=== PATIENT | male | born 1970 | race African-American/Black ===

== ENCOUNTER 2020-10-09 07:19 | Emergency (ER) | payer OTHER ==
[~2020-10-09] VITALS: Ht 175.3 cm; Wt 86.2 kg
[~2020-10-09 07:19] MED LIST: ABILIFY10 MG PO; BASAGLAR K100 UNIT/1 SUB-Q; BUSPIRONE HCL10 MG PO; EFFEXOR XR150 MG PO; EFFEXOR XR75 MG PO; FISH OIL 1,0001 EAC2 NG; GLUCOPHAGE500 MG PO; JARDIANCE25 MG PO; LAMOTRIGINE100 MG PO; LANTUS100 UNITS/ SUB-Q; LATUDA80 MG PO; LIPITOR80 MG GT; LOSARTAN-HCTZ1 EACH PO; LOVASTATIN20 MG PO; METOPROLOL SUCC25 MG PO; NEURONTIN600 MG PO; NEURONTIN800 MG PO; NOVOLOG FL100 UNIT/1 SUB-Q; PROZAC40 MG PO; TRAMADOL HCL50 MG PO; TRULICITY0.75 MG/0. SUB-Q; XANAX1 MG PO
--- OUTSIDE RECORDS SUMMARY | 2020-10-09 07:20 | XMS ---
PreManage Notification: KESHA VELA Security Interactive Digital Media Specialist Events No recent Security Events currently on file CRITERIA MET - PDMP CARE PROVIDERS FAHEEM NOBLE Physician Farm Owner Operator 07/11/2020-Current YUVAL PHONE: [phone] Rafael has no Care Guidelines for this patient. Alexi VISIT COUNT (12 MO.) 2 [facility] TOTAL 2 NOTE: Visits indicate total known visits. ED/UCC VISIT TRACKING (12 MO.) 10/09/2020 07:19 [facility] [place] TYPE: Emergency COMPLAINT: - FALL 07/10/2020 18:47 [facility] [place] TYPE: Emergency COMPLAINT: - SOB/COUGH/FEVER DIAGNOSES: - Contact with and (suspected) exposure to other viral communicable diseases - Type 2 diabetes mellitus without complications - termite inspector (current) use of insulin - Essential (primary) hypertension - Other technician terminal and repeater (current) drug therapy - Personal history of transient ischemic attack (TIA), and cerebral infarction without residual deficits - Bipolar disorder, unspecified - Shortness of breath - Nicotine dependence, unspecified, uncomplicated INPATIENT VISIT TRACKING (12 MO.) No inpatient visits to display in this time frame [id number]
--- NOTE | 2020-10-10 05:36 | EKG ---
[facility] [address] [place], [place] [address] Signed Sinus tachycardia Otherwise normal ECG When compared with ECG of 10-JUL-2020 19:43, No significant change was found Confirmed by SVEN WATERMAN MD ([id number]) on 10/10/2020 5:36:13 AM Electronically Signed By: SVEN WATERMAN MD 10/10/20 0536 PATIENT NAME: KESHA VELA III Electrocardiogram DATE OF : 66 PHYSICIAN: SVEN WATERMAN MD REPORT #: [id number] REPORT IS CONFIDENTIAL AND NOT TO BE RELEASED WITHOUT AUTHORIZATION
== END 2020-10-09 11:32 | disposition home or self-care (01) ==
LOC: ED 07:19
DX: R55 Syncope and collapse (principal); S83.92XA Sprain of unspecified site of left knee, initial encounter; W01.198A Fall on same level from slipping, tripping and stumbling with subsequent striking against other object, initial encounter; E11.9 Type 2 diabetes mellitus without complications; I10 Essential (primary) hypertension; E78.00 Pure hypercholesterolemia, unspecified; F17.200 Nicotine dependence, unspecified, uncomplicated; Z79.899 Other long term (current) drug therapy; Z79.4 Long term (current) use of insulin
CPT/HCPCS: 73560; 80053; 85025; 93005; 93010; 99284-25; J7030

== ENCOUNTER 2021-01-15 01:04 | Emergency (ER) | payer OTHER ==
[~2021-01-15] VITALS: Ht 175.3 cm; Wt 86.2 kg
--- OUTSIDE RECORDS SUMMARY | 2021-01-15 01:08 | XMS ---
PreManage Notification: KESHA VELA Security Semiconductor Processing Group Leader Events No recent Security Events currently on file CRITERIA MET - PDMP CARE PROVIDERS FAHEEM NOBLE Physician Dam Operator 07/11/2020-Current YUVAL PHONE: [phone] Rafael has no Care Guidelines for this patient. Alexi VISIT COUNT (12 MO.) 3 HER[facility]IL[facility] TOTAL 3 NOTE: Visits indicate total known visits. ED/UCC VISIT TRACKING (12 MO.) 01/15/2021 01:05 [facility] [place] TYPE: Emergency COMPLAINT: - HAND INJURY 10/09/2020 07:19 [facility] [place] TYPE: Emergency COMPLAINT: - FALL DIAGNOSES: - Type 2 diabetes mellitus without complications - Nicotine dependence, unspecified, uncomplicated - Other termite control servicer (current) drug therapy - Pure hypercholesterolemia, unspecified - Sprain of unspecified site of left knee, initial encounter - Fall on same level from slipping, tripping and stumbling with subsequent striking against other object, initial encounter - termite control servicer (current) use of insulin - Essential (primary) hypertension - Syncope and collapse 07/10/2020 18:47 [facility] [place] TYPE: Emergency COMPLAINT: - SOB/COUGH/FEVER DIAGNOSES: - Contact with and (suspected) exposure to other viral communicable diseases - Type 2 diabetes mellitus without complications - MCFP (current) use of insulin - Essential (primary) hypertension - Other fpc (current) drug therapy - Personal history of transient ischemic attack (TIA), and cerebral infarction without residual deficits - Bipolar disorder, unspecified - Shortness of breath - Nicotine dependence, unspecified, uncomplicated INPATIENT VISIT TRACKING (12 MO.) No inpatient visits to display in this time frame [id number]
== END 2021-01-15 01:55 | disposition short-term general hospital (02) ==
LOC: ED 01:04
DX: S61.512A Laceration without foreign body of left wrist, initial encounter (principal); I10 Essential (primary) hypertension; E11.9 Type 2 diabetes mellitus without complications; F17.200 Nicotine dependence, unspecified, uncomplicated; Z20.822 Contact with and (suspected) exposure to COVID-19; Z79.899 Other long term (current) drug therapy; Z79.4 Long term (current) use of insulin; Z23 Encounter for immunization; X58.XXXA Exposure to other specified factors, initial encounter
CPT/HCPCS: 36415; 73130; 80053; 82150; 82550; 83690; 85025; 86850; 86900; 86901; 90471; 90714; 96365; 96375; 99284-25; C9803; J0696; J2270; J2405; U0003

== ENCOUNTER 2021-01-20 08:41 | Emergency (ER) | payer OTHER ==
[~2021-01-20] VITALS: Ht 175.3 cm; Wt 88.5 kg
--- OUTSIDE RECORDS SUMMARY | 2021-01-20 08:44 | XMS ---
PreManage Notification: KESHA VELA Security Parking Regulation Enforcement Officer Events No recent Security Events currently on file CRITERIA MET - [facility] - [facility] - 2 Visits in 30 Days CARE PROVIDERS FAHEEM NOBLE Physician Fire Patrol 07/11/2020-Current [employer] PHONE: [phone] ASHLEY GE [facility] 01/16/2021-Current PHONE: [phone] Rafael has no Care Guidelines for this patient. Care History Medical/Surgical 01/16/2021 [facility] - Patient is currently established with [facility]. If patient is seen in the ED during business hours. Please contact CHWs at [facility]. Care Recommendation: If this patient has had 5 or more Emergency Department visits in the last 12 months.\T\nbsp; Patient will require education on the scope and purpose of the ED as an acute care provider not a Primary Care Provider and should not be utilized for chronic conditions.\T\nbsp; These are guidelines and the provider should exercise clinical judgment when providing care. E.D. VISIT COUNT (12 MO.) 1 [facility] 4 HERMILO Tate TOTAL 5 NOTE: Visits indicate total known visits. ED/UCC VISIT TRACKING (12 MO.) 01/20/2021 08:41 [facility] [place] TYPE: Emergency COMPLAINT: - LEFT HAND WOUND CHECK 01/15/2021 03:17 [facility] TYPE: Emergency DIAGNOSES: 61951. Hand Injury 34514. Unspecified injury of left wrist, hand and finger(s), initial encounter 01/15/2021 01:05 [facility] [place] TYPE: Emergency COMPLAINT: - HAND INJURY DIAGNOSES: - Nicotine dependence, unspecified, uncomplicated - Type 2 diabetes mellitus without complications - Laceration without foreign body of left wrist, initial encounter - Other care home (current) drug therapy - Unspecified injury of left wrist, hand and finger(s), initial encounter - Essential (primary) hypertension - Encounter for immunization - Exposure to other specified factors, initial encounter - MCFP (current) use of insulin 10/09/2020 07:19 [facility] [place] TYPE: Emergency COMPLAINT: - FALL DIAGNOSES: - Type 2 diabetes mellitus without complications - Nicotine dependence, unspecified, uncomplicated - Other care home (current) drug therapy - Pure hypercholesterolemia, unspecified - Sprain of unspecified site of left knee, initial encounter - Fall on same level from slipping, tripping and stumbling with subsequent striking against other object, initial encounter - MCFP (current) use of insulin - Essential (primary) hypertension - Syncope and collapse 07/10/2020 18:[address] [facility] [place] TYPE: Emergency COMPLAINT: - SOB/COUGH/FEVER DIAGNOSES: - Contact with and (suspected) exposure to other viral communicable diseases - Type 2 diabetes mellitus without complications - equipment operator intermodal yard (current) use of insulin - Essential (primary) hypertension - Other long line teamster (current) drug therapy - Personal history of transient ischemic attack (TIA), and cerebral infarction without residual deficits - Bipolar disorder, unspecified - Shortness of breath - Nicotine dependence, unspecified, uncomplicated INPATIENT VISIT TRACKING (12 MO.) No inpatient visits to display in this time frame [id number]
[2021-01-20] MEDS ORDERED: HYDROCODON-ACE1 EA10 PO (09:14)
[2021-01-20] MEDS ORDERED: AMLODIPINE BESYL5 MG PO (09:43)
[2021-01-20] MEDS ORDERED: LOSARTAN POTAS100 MG (09:43)
[2021-01-20] MEDS ORDERED: CEPHALEXIN500 MG PO (09:43)
== END 2021-01-20 09:31 | disposition home or self-care (01) ==
LOC: ED 08:41
DX: S61.412D Laceration without foreign body of left hand, subsequent encounter (principal); E11.9 Type 2 diabetes mellitus without complications; I10 Essential (primary) hypertension; E78.00 Pure hypercholesterolemia, unspecified; Z86.73 Personal history of transient ischemic attack (TIA), and cerebral infarction without residual deficits; F17.200 Nicotine dependence, unspecified, uncomplicated; Z79.899 Other long term (current) drug therapy; Z79.4 Long term (current) use of insulin
CPT/HCPCS: 99282

== ENCOUNTER 2021-06-14 07:03 | Emergency (ER) | payer OTHER ==
[~2021-06-14] VITALS: Ht 175.3 cm; Wt 89.8 kg
[~2021-06-14 07:03] MED LIST changes: +AMLODIPINE BESYL5 MG PO; +CEPHALEXIN500 MG PO; +HYDROCODON-ACE1 EA10 PO; +LOSARTAN POTAS100 MG
--- OUTSIDE RECORDS SUMMARY | 2021-06-14 07:10 | XMS ---
PreManage Notification: KESHA VELA Security Director Financial Analysis Events No recent Security Events currently on file CRITERIA MET - PDMP CARE PROVIDERS FAHEEM SALOMON Physician Squilgeer 07/11/2020-Current PHONE: [phone] ASHLEY GE [facility] 01/16/2021-Current PHONE: [phone] aRfael has no Care Guidelines for this patient. Care History Medical/Surgical 01/16/2021 [facility] - Patient is currently established with [facility]. If patient is seen in the ED during business hours. Please contact CHWs at [facility]. Care Recommendation: If this patient has had [...] care. E.D. VISIT COUNT (12 MO.) 1 [facility] [address] [facility] TOTAL 6 NOTE: Visits indicate total known visits. ED/UCC VISIT TRACKING (12 MO.) 06/14/2021 07:[address] [facility] [place] TYPE: Emergency COMPLAINT: - FLU SYMPTOMS, VOMITING, HOT/SWEATY CLAMMY 01/20/2021 08:41 [facility] [place] TYPE: Emergency COMPLAINT: - LEFT HAND WOUND CHECK DIAGNOSES: - Personal history of transient ischemic attack (TIA), and cerebral infarction without residual deficits - Laceration without foreign body of left hand, subsequent encounter - Other buttermilk drier operator (current) drug therapy - Pure hypercholesterolemia, unspecified - Type 2 diabetes mellitus without complications - Essential (primary) hypertension - Nicotine dependence, unspecified, uncomplicated - terminal gauger (current) use of insulin 01/15/2021 03:17 [facility] TYPE: Emergency DIAGNOSES: 18229. Hand Injury 32065. Unspecified injury of left wrist, hand and finger(s), initial encounter 01/15/2021 01:05 [facility] [place] TYPE: Emergency COMPLAINT: - HAND INJURY DIAGNOSES: - Nicotine dependence, unspecified, uncomplicated - Type 2 diabetes mellitus without complications - Laceration without foreign body of left wrist, initial encounter - Other buttermilk drier operator (current) drug therapy - Unspecified injury of left wrist, hand and finger(s), initial encounter - Essential (primary) hypertension - Encounter for immunization - Exposure to other specified factors, initial encounter - terminal gauger (current) use of insulin 10/09/2020 07:19 [facility] [place] TYPE: Emergency COMPLAINT: - FALL DIAGNOSES: - Type 2 diabetes mellitus without complications - Nicotine dependence, unspecified, uncomplicated - Other senior care (current) drug therapy - Pure hypercholesterolemia, unspecified - Sprain of unspecified site of left knee, initial encounter - Fall on same level from slipping, tripping and stumbling with subsequent striking against other object, initial encounter - terminal gauger (current) use of insulin - Essential (primary) hypertension - Syncope and collapse 07/10/2020 18:47 [facility] [place] TYPE: Emergency COMPLAINT: - SOB/COUGH/FEVER DIAGNOSES: - Contact with and (suspected) exposure to other viral communicable diseases - Type 2 diabetes mellitus without complications - terminal gauger (current) use of insulin - Essential (primary) hypertension - Other senior care (current) drug therapy - Personal history of transient ischemic attack (TIA), and cerebral infarction without residual deficits - Bipolar disorder, unspecified - Shortness of breath - Nicotine dependence, unspecified, uncomplicated INPATIENT VISIT TRACKING (12 MO.) No inpatient visits to display in this time frame [id number]
[2021-06-14] MEDS ORDERED: HYDROCHLOROTHIA25 MG PO (07:41)
[2021-06-14] MEDS ORDERED: BUPRENORPHINE-1 EACH SL (07:42)
[2021-06-14] MEDS ORDERED: LATANOPROST2.5 ML OPTH (07:42)
--- NOTE | 2021-06-14 22:32 | EKG ---
[facility] [address] [facility] [facility] [place], [place] [address] Signed Normal sinus rhythm Normal ECG When compared with ECG of 09-OCT-2020 07:37, No significant change was found Confirmed by MARYAM FOSTER DO ([id number]) on 06/14/2021 10:31:53 PM Electronically Signed By: MARYAM FOSTER DO 06/14/212231 PATIENT NAME: KESHA VELA III Electrocardiogram DATE OF : 66 PHYSICIAN: MARYAM FOSTER DO REPORT #: [id number] REPORT IS CONFIDENTIAL AND NOT TO BE RELEASED WITHOUT AUTHORIZATION
== END 2021-06-14 11:51 | disposition left against medical advice (07) ==
LOC: ED 07:03
DX: R10.13 Epigastric pain (principal); R11.10 Vomiting, unspecified; Z20.822 Contact with and (suspected) exposure to COVID-19; I10 Essential (primary) hypertension; E11.9 Type 2 diabetes mellitus without complications; E78.00 Pure hypercholesterolemia, unspecified; F17.200 Nicotine dependence, unspecified, uncomplicated; Z79.899 Other long term (current) drug therapy; Z79.4 Long term (current) use of insulin
CPT/HCPCS: 71045; 76705; 80053; 83690; 85025; 93005; 93010; 96374; 96375; 99284-25; C9803; J1170; J2405; J7030; U0003

== ENCOUNTER 2022-02-14 03:45 | Observation (INO) | payer OTHER ==
[~2022-02-14] VITALS: Ht 175.3 cm; Wt 95.2 kg
[~2022-02-14 03:45] MED LIST changes: +BUPRENORPHINE-1 EACH SL; +HYDROCHLOROTHIA25 MG PO; +LATANOPROST2.5 ML OU; -LIPITOR80 MG GT; +LIPITOR80 MG PO; -LOSARTAN POTAS100 MG; +LOSARTAN POTAS100 MG PO; +NEURONTIN400 MG PO; -NEURONTIN800 MG PO
--- OUTSIDE RECORDS SUMMARY | 2022-02-14 03:48 | XMS ---
PreManage Notification: KESHA VELA Security Emu Farm Worker Events 1 event(s) in the past 18 months Most recent security events: Elopement at [facility] 06/14/2021 07:04 - Other Details: PATIENT LEFT AMA. CRITERIA MET - [facility] CARE PROVIDERS KAELYN FLOR Nurse Practitioner: 06/15/2021-Current PHONE: [phone] FAHEEM SALOMON Physician Shear Operator 07/11/2020-Current PHONE: [phone] ASHLEY GE [facility] 01/16/2021-Current PHONE: [phone] Rafael has no Care Guidelines for this patient. E.D. VISIT COUNT (12 MO.) 2 [facility] TOTAL 2 NOTE: Visits indicate total known visits. ED/UCC VISIT TRACKING (12 MO.) 02/14/2022 03:46 [facility] [place] TYPE: Emergency COMPLAINT: - VOMITING, ABD PAIN 06/14/2021 07:04 [facility] [place] TYPE: Emergency COMPLAINT: - FLU SYMPTOMS, VOMITING, HOT/SWEATY CLAMMY DIAGNOSES: - Right upper quadrant pain - snf (current) use of insulin - Pure hypercholesterolemia, unspecified - Essential (primary) hypertension - Type 2 diabetes mellitus without complications - Epigastric pain - Vomiting, unspecified - snf (current) use of oral hypoglycemic drugs - Other slot supervisor (current) drug therapy - Nicotine dependence, unspecified, uncomplicated INPATIENT VISIT TRACKING (12 MO.) No inpatient visits to display in this time frame [id number]
[2022-02-14] MEDS ORDERED: INSULIN LI100 UNIT/2 SUB-Q (04:04)
[2022-02-14] MEDS ORDERED: METFORMIN HCL500 M1 PO (04:04)
[2022-02-14] MEDS ORDERED: TRAZODONE HCL50 MG PO (04:06)
[2022-02-14] MEDS ORDERED: LOVASTATIN20 MG PO (04:09)
--- NOTE | 2022-02-14 08:59 | NUR ---
PT TO FLOOR VIA STRETCHER AND RN YAEL. PT ABLE TO AMBULATE TO BED ON OWN. STATES HE USES A CANE AT HOME DUE TO ACHILLES TENDON REMOVAL AND SURGERIES. PT DROWSY HE HAS BEEN UP ALL NIGHT THROWING UP. PT POLITE AND ANSWERS ALL QUESTIONS APPROPRIATLY. IVF STARTED AND DILAUDID GIVEN FOR PAIN 7\10.
--- NOTE | 2022-02-14 11:05 | NUR ---
COMPLETED ASSESSMENT. PT IN BED HAVING JUST FINISHED TALKING WITH DR VÁZQUEZ. IN CHAIR. DENIES NAUSEA, MINIMAL PAIN ATT. GIVEN JELLO AND ICE WATER PER NEW DIET ORDER.
[2022-02-14] MEDS ORDERED: BUPRENORPHINE-1 EACH SL (12:16)
[2022-02-14] MEDS ORDERED: TRULICITY1.5 MG/0.5 SUB-Q (12:19)
--- NOTE | 2022-02-14 12:29 | NUR ---
ADMINISTERED 4 UNITS OF INSULIN FOR BS OF 206. PT TOLERATED WELL AND HAS TAKEN INSULIN BEFORE. RATES PAIN 7/10 BUT ALSO STATES HE FEELS MUCH BETTER. CLEAR LIQ TRAY AT BEDSIDE
--- NOTE | 2022-02-14 13:50 | NUR ---
Spoke with pt and he is drowsy. Argelia is in the room and answers most of the questions. Pt lives in a home with 13 steps. 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 He has a history of m[facility]p and states this is where is achelles tendon was injured. He is on SSI. He believes his panreatitis is from his Trulicity. Pt and plan on pt discharging to home when cleared medically. states they use food duque and CAPECO.
--- NOTE | 2022-02-14 14:09 | NUR ---
PT ON PHONE, WILL CHECK BACK
--- NOTE | 2022-02-14 14:48 | NUR ---
MED REC COMPLETE
--- NOTE | 2022-02-14 15:51 | NUR ---
PT RESTING IN BED. PT GIVEN IV REGLAN PER ORDER. TOOK ORAL MEDICATIONS WITHOUT PROBLEM. PT PROVIDED WITH FRESH WATER. PT DENIES OTHER NEEDS AT THIS TIME.
--- NOTE | 2022-02-14 21:06 | NUR ---
BLOOD SUGAR 146
--- NOTE | 2022-02-14 21:20 | NUR ---
PT WITH EYES CLOSED, RESP EVEN UNLABORED, EYES OPENED TO SOUND WHEN THIS RN IN TO DO BLOOD SUGARS. VITALS COMPLETE, PT VOICED NO NEEDS WHEN ASKED. REPORTED BG TO PRIMARY RN LINDA.
--- NOTE | 2022-02-14 22:45 | NUR ---
PT DROWSY. BED ALARM APPLIED. DISCUSSED WITH PT THAT HE NEEDS TO CALL AND USE THE URINAL WHEN HE VOIDS SO THAT WE CAN MEASURE OUTPUT. PT STATES UNDERSTANDING. CALL LIGHT WITHIN REACH.
--- NOTE | 2022-02-15 03:50 | NUR ---
LOUD SNORING NOTED. HAS APPEARED TO BE SLEEPING SOUNDLY DURING LAST SEVERAL ROUNDINGS.
--- NOTE | 2022-02-15 06:08 | NUR ---
PT SLEPT WELL THROUGH THE NIGHT. PT STATES GI COCKTAIL AND TYLENOL HELPED RESOLVE HIS PAIN. CURRENTLY DENIES ANY PAIN.
[2022-02-15] MEDS ORDERED: NICOTINE1 EAC1 TD (10:03)
[2022-02-15] MEDS ORDERED: METOCLOPRAMIDE H5 MG PO (10:04)
== END 2022-02-15 10:25 | disposition home or self-care (01) ==
LOC: ED 03:45 → MS 03:47
PROVIDERS: ADMIT Internal Medicine; ATTEND Internal Medicine
DX: K31.84 Gastroparesis (principal); T38.3X5A Adverse effect of insulin and oral hypoglycemic [antidiabetic] drugs, initial encounter; N17.9 Acute kidney failure, unspecified; I10 Essential (primary) hypertension; E11.65 Type 2 diabetes mellitus with hyperglycemia; F31.9 Bipolar disorder, unspecified; E78.5 Hyperlipidemia, unspecified; F17.200 Nicotine dependence, unspecified, uncomplicated; I25.10 Atherosclerotic heart disease of native coronary artery without angina pectoris; K76.0 Fatty (change of) liver, not elsewhere classified; E86.0 Dehydration; Z86.16 Personal history of COVID-19; Z79.4 Long term (current) use of insulin; Z79.84 Long term (current) use of oral hypoglycemic drugs; Z20.822 Contact with and (suspected) exposure to COVID-19; Z86.73 Personal history of transient ischemic attack (TIA), and cerebral infarction without residual deficits
CPT/HCPCS: 36415; 74176; 80048; 80053; 81001; 83690; 83735; 85025; 96372; 96374; 96375; 96376; 99285-25; A9270; C9113; G0378; J1170; J1650; J1815; J2405; J2765; J7030; J7040; J7121; U0003

== ENCOUNTER 2024-09-24 19:43 | Emergency (ER) | payer OTHER ==
[~2024-09-24] VITALS: Ht 175.3 cm; Wt 90.0 kg
--- OUTSIDE RECORDS SUMMARY | ~2024-09-24 | XMS | Continuity of Care Document ---
Demographics + + + | Address | [address] | | | [place] [address] | + + + | Preferred Language | Unknown | + + + | Marital Status | | + + + | Anabaptist Affiliation | Unknown | + + + | Race | Unknown | + + + | Ethnic Group | Not or | + + + Author + + + | Author | [facility] | + + + | Organization | [facility] | + + + | Address | [address] | | | [place] [address] | + + + | Phone | | + + + Care Team Providers + + + + | Care Organic Chemistry Professor Name | Role | Phone | + + + + Unavailable | Unavailable | + + + + Unavailable | Unavailable | + + + + Allergies No information. Encounters No information. Functional Status No information. Immunizations No information. Medications + + + + | date | description | facility | + + + + | 2024-08-05 00:00 | pregabalin 200 MG Oral | [facility] | | | Capsule [Lyrica] | | + + + + | 2024-08-05 00:00 | Lyrica 200 MG Oral Capsule | [facility] | | | | | + + + + Problems + + + + | date | description | facility | + + + + | 2024-08-15 21:45:14 | Other watermaster (current) | [facility] | | | drug therapy | | + + + + Procedures + + + + | date | description | facility | + + + + | 2024-07-07 00:00 | Controlling Blood | [facility] | | | Pressure; Most recent | | | | Systolic <130mm Hg | | + + + + | 2024-08-05 00:00 | Controlling Blood | [facility] | | | Pressure; Most recent | | | | Systolic <130mm Hg | | + + + + | 2024-07-07 00:00 | Controlling BP; Most | [facility] | | | recent Diastolic BP < 80mm | | | | Hg | | + + + + | 2024-08-05 00:00 | Controlling BP; Most | [facility] | | | recent Diastolic BP < 80mm | | | | Hg | | + + + + Results/Labs No information. Social History + + + + | date | description | facility | + + + + | 2024-07-07 00:00 | Unknown if ever smoked | [facility] | + + + + | 2024-07-07 00:00 | Smoker (finding) | [facility] | + + + + | 2024-08-05 00:00 | Unknown if ever smoked | [facility] | + + + + | 2024-08-05 00:00 | Smoker (finding) | [facility] | + + + + Vital Signs + + + + + | date | measurement | value | units | + + + + + | 2024-07-07 00:00 | BMI | 31.2 | 1 | + + + + + | 2024-07-07 00:00 | BP_diastolic | 76 | mmHg | + + + + + | 2024-07-07 00:00 | BP_systolic | 110 | mmHg | + + + + + | 2024-07-07 00:00 | BSA | 2 | 1 | + + + + + | 2024-07-07 00:00 | heart_rate | 1|1| | completed | + + + + + | 2024-07-07 00:00 | heart_rate | 96 | /min | + + + + + | 2024-07-07 00:00 | height_metric | 168.91 | cm | + + + + + | 2024-07-07 00:00 | height_standard | 66.5 | in | + + + + + | 2024-07-07 00:00 | o2_saturation | 97 | % | + + + + + | 2024-07-07 00:00 | temperature_metric | 36.67 | C | | | | | | + + + + + | 2024-07-07 00:00 | | 98 | F | | | temperature_standar | | | | | d | | | + + + + + | 2024-07-07 00:00 | weight_metric | 89.13 | kg | + + + + + | 2024-07-07 00:00 | weight_standard | 196.5 | lb | + + + + + | 2024-08-05 00:00 | BMI | 30.4 | 1 | + + + + + | 2024-08-05 00:00 | BP_diastolic | 68 | mmHg | + + + + + | 2024-08-05 00:00 | BP_systolic | 124 | mmHg | + + + + + | 2024-08-05 00:00 | BSA | 2 | 1 | + + + + + | 2024-08-05 00:00 | heart_rate | 114 | /min | + + + + + | 2024-08-05 00:00 | heart_rate | 1|1| | completed | + + + + + | 2024-08-05 00:00 | height_metric | 168.91 | cm | + + + + + | 2024-08-05 00:00 | height_standard | 66.5 | in | + + + + + | 2024-08-05 00:00 | o2_saturation | 96 | % | + + + + + | 2024-08-05 00:00 | temperature_metric | 36.5 | C | | | | | | + + + + + | 2024-08-05 00:00 | | 97.7 | F | | | temperature_standar | | | | | d | | | + + + + + | 2024-08-05 00:00 | weight_metric | 86.75 | kg | + + + + + | 2024-08-05 00:00 | weight_standard | 191.25 | lb | + + + + +"
[~2024-09-24 19:43] MED LIST changes: +CELECOXIB100 MG PO; +CEPHALEXIN500 M1 PO; +CIPRO500 MG PO; +INSULIN GL100 UNIT/2 SUB-Q; +INSULIN LI100 UNIT/2 SUB-Q; +METFORMIN HCL500 M1 PO; +METOCLOPRAMIDE H5 MG PO; +NEURONTIN300 MG PO; -NEURONTIN400 MG PO; +NICOTINE1 EAC1 TD; +TRAZODONE HCL50 MG PO; +TRULICITY1.5 MG/0.5 SUB-Q; +VENLAFAXINE HC150 MG PO
[2024-09-24] MEDS ORDERED: IBLOOD GLUCOSE TEST STRIP 1 EA TEST XX ONE (20:00)
[2024-09-24] MEDS ORDERED: LACTATED RINGER'S 1,000 ML IV ONE (20:00)
[2024-09-24] MEDS ORDERED: SODIUM CHLORIDE 0.9% 1,000 ML IV ONE (20:00)
[2024-09-24] MEDS ORDERED: INSULIN LISPRO 100 UNIT/ML ML SUB-Q ONE ×2 (20:00→21:30)
[2024-09-24] MEDS ORDERED: DAPAGLIFLOZIN10 MG PO (20:00)
[2024-09-24 20:35] LABS: BASOPHILS 1.2 % (0-2); HEMATOCRIT 40.9 % (35.0-50.0); HEMOGLOBIN 13.8 g/dL (12.0-18.0); LYMPHOCYTES 35.3 % (24-44); MCH 31.9 (27-36); MCHC 33.8 g/dl (30-36); MCV 94.5 fl (81-99); MONOCYTES 7.4 % (0-12); NEUTROPHILS 52.1 % (39-80); PLATELET COUNT 388 K/uL (140-440); RBC 4.33 M/ul (4.3-5.7); RDW 13.8 (10.5-15.0)
[2024-09-24 20:38] LABS: PH, VENOUS 7.425 (7.31-7.41)
[2024-09-24 20:54] LABS: ALBUMIN 3.9 g/dL (3.4-5.0); ALBUMIN/GLOBULIN RATIO 0.91 (1.1-2.4); ANION GAP 11.8 (7-21); BILIRUBIN, TOTAL 0.4 ng/dL (0.2-1.0); BUN/CREATININE RATIO 12.4 (6.0-28.6); CALCIUM 9.1 mg/dL (8.5-10.1); CREATININE, SERUM 1.37 mg/dL (0.70-1.30); MAGNESIUM 2.5 mg/dL (1.8-2.4); PHOSPHORUS, INORGANIC 3.8 mg/dL (2.5-4.9); POTASSIUM 4.8 mmol/L (3.5-5.1); PROTEIN, TOTAL 8.2 g/dL (6.4-8.2)
[2024-09-24 22:45] VITALS: BP 132/82
== END 2024-09-24 22:45 | disposition home or self-care (01) ==
LOC: ED 19:43
PROVIDERS: Family Medicine
DX: E11.65 Type 2 diabetes mellitus with hyperglycemia (principal); I10 Essential (primary) hypertension; F17.200 Nicotine dependence, unspecified, uncomplicated; Z79.84 Long term (current) use of oral hypoglycemic drugs; Z79.51 Long term (current) use of inhaled steroids; Z79.4 Long term (current) use of insulin; Z86.73 Personal history of transient ischemic attack (TIA), and cerebral infarction without residual deficits
CPT/HCPCS: 36415; 71045; 80053; 82010; 82803; 83735; 84100; 85025; 99285-25; J1815